=== PATIENT | female | born 1980 | race Caucasian/White ===

== ENCOUNTER 2022-04-25 14:45 | Outpatient (CLI) | payer BC, SELFPAY | END 2022-04-25 14:46 | disposition home or self-care (01) | LOC: LKVREF 14:49 | PROVIDERS: PCP Family Medicine; Visit Provider Family Medicine | DX: E03.9 Hypothyroidism, unspecified (principal) | CPT/HCPCS: 84443 ==

== ENCOUNTER 2022-05-12 09:56 | Outpatient (CLI) | payer BC, SELFPAY ==
--- NOTE | 2022-05-12 10:15 | CRLHL7_ITS ---
For Patients: As a result of the Century Cures Act, medical imaging exams and procedure reports are released immediately into your electronic medical record. You may view this report before your referring provider. If you have questions, please contact your health care provider. BILATERAL SCREENING MAMMOGRAM WITH COMPUTER-AIDED DETECTION TECHNIQUE: CC and MLO views were obtained. These mammographic images have been obtained using full-field digital technique. These mammographic images were interpreted with the benefit of computer-aided detection. COMPARISON FILM: None. This is a baseline study. FINDINGS: The breasts are heterogeneously dense, which may obscure small masses. IMPRESSION: There is no radiographic evidence for malignancy. ASSESSMENT: BI-RADS Category 1: Negative RECOMMENDATION: Routine screening mammogram in 1 year. A lay language report of this examination will be provided to the patient. HEBERT JOHNSON M.D. Diagnostic Radiologist [email or web address] Transcribed: 05/13/2022, 2:[address]/Dictated by: Hebert Johnson MD @ 05/13/2022 8:19:00 AM (Electronically Signed)
== END 2022-05-12 09:57 | disposition home or self-care (01) ==
LOC: MAMMO 09:57
PROVIDERS: PCP Family Medicine; Visit Provider Family Medicine
DX: Z12.31 Encounter for screening mammogram for malignant neoplasm of breast; R92.2 Inconclusive mammogram
CPT/HCPCS: 77063; 77067

== ENCOUNTER 2023-07-10 18:09 | Outpatient (CLI) | payer BC, SELFPAY | END 2023-07-10 18:10 | disposition home or self-care (01) | PROVIDERS: PCP Family Medicine; Visit Provider Family Medicine | DX: E03.9 Hypothyroidism, unspecified (principal); Z13.228 Encounter for screening for other metabolic disorders; E78.00 Pure hypercholesterolemia, unspecified | CPT/HCPCS: 80053; 80061; 84443 ==

== ENCOUNTER 2023-10-31 12:32 | Outpatient (CLI) | payer BC, SELFPAY ==
--- OUTSIDE RECORDS SUMMARY | 2023-10-31 12:35 | XMS_ITS | Encounter Summary ---
Author Organization [facility] Address [address] [place] [address] Care Team Providers Care Wood Polisher Name Role Phone Ruthie Yip P.A.-C. Primary Care Provider +- [phone] Reason for Referral * Outpatient (Routine) - Authorized Specialty Diagnoses / Procedures Referred By Contyuliana t Referred To Contact Diagnoses Screening Mammogram Breast Cancer Procedures BI Breast Screening Bilateral with Tomosynthesis Ruthie Yip P.A.-Ivonne [address] [facility] [place] [address] [facility] Referral ID Status Reason Start Date Expiration Date V isits Requested Visits Authorized [id number] Authorized 10/17/2023 10/16/2024 1 1 Encounter Details Date Type Department Care Team (Late st Contact Info) Description 10/17/2023 Orders Only [facility] PCP [facility] MNT Ruthie Yip P.ANia-Ivonne [address] [address] Hypothyroidism; Screening Mammogram Breast Cancer Social History Tobacco Use Types Packs/Day Years Used Date Smoking Tobacco: Former Smokeless Tobacco: Current [facility] Utilities Answer Date Recorded In the past 12 months has e electric, gas, oil, or water company threatened to shut off services in your home? No 07/01/2023 Exercise Vital Sign Answer Date Recorde d On average, how many days pe r week do you engage in moderate to strenuous exercise (like a brisk walk)? 6 days 07/01/2023 On average, how many minutes do you engage in exercise at this level? 60 min 07/01/2023 Hunger Vital Sign Answer Date Recorded Within the past 12 months, y ou worried that your food would run out before you got the money to buy more. Never true 07/01/19 Within the past 12 months, t he food you bought just didn't last and you didn't have money to get more. Never true 07/01/2023 PRAPARE - Transportation Answer Date Re corded In the past 12 months, has l ack of transportation kept you from medical appointments or from getting medications? No 06/09 In the past 12 months, has l ack of transportation kept you from meetings, work, or from getting things needed for daily living? No 07/01/2023 Nutrition Answer Date Recorded Nutrition: EVOO Fat Source Unknown 06/11 Nutrition: Servings of Fruits/Vegetables per Day Not on file 06/11/2020 Dental Answer Date Recorded Dental: Regular Dentist Yes 07/01/19 Housing Stability Answer Date Recorded What is your living situation today? I have a [facility] place to live 07/01/2023 Sex and Gender Information Value Date Recorded Sex Assigned at Female 07/11/2023 6:10 PM CDT Gender Identity Female 07/11/2023 6:10 PM CDT Sexual Orientation Straight 07/01/2023 10 :34 PM CDT documented as of this encounter Plan of Treatment Scheduled Orders Name Type Priority Associated Diagnoses Order Schedule S-TSH (Thyroid-Stimulating Hormone - Sensitive) Lab Routine Hypothyroidism Expected: 10/31/2023, Expires: 04/14/2024 BI Breast Screening Bilateral with Tomosynthesis Imaging RAD - Routine (most inpatients and all outpatients) Screening Mammogram Breast Cancer Expected: 11/16/2023, Expires: 04/14/2024 documented as of this encounter Visit Diagnoses Diagnosis Hypothyroidism Screening Mammogram Breast Cancer documented in this encounter Care Teams Wood Polisher Relationship Specialty Start Date End Date Ruthie Yip P.A.-C. [address], [place] [id number] PCP - General 06/25/20 documented as of this encounter
--- OUTSIDE RECORDS SUMMARY | 2023-10-31 12:35 | XMS_ITS | Clinical Summary ---
Author Organization [facility] Address [place], [place] [address] Care Team Providers Care Uniform Designer Name Role Phone Zac Marvin MD Primary Care Provider [phone] Allergies No known active allergies Medications Medication Sig Dispensed Refills Start Date End Date Status SUMAtriptan (IMITREX) 50 mg tablet Take 50 mg by mouth every 2 hours if needed for Migraine. Max dose: 200mg per 24 hrs. Active HYDROcodone-acetamin ophen, 5-325 mg, (NORCO) per tabletIndications:Ri ght sided abdominal pain,History of diverticulitis Take 1-2 tablets by mouth every 4 hours if needed for Pain. Max acetaminophen dose: 4000 mg in 24 hrs. 15 tablet 0 03/12/2015 Active Active Problems Problem Noted Date Diagnosed Date Sterilization 11/11/2014 Menorrhagia 11/11/2014 Pelvic pain in female 11/09/2014 Immunizations Name Administration Dates Next Due Tdap 02/21/2012 Social History Tobacco Use Types Packs/Day Years Used Date Smoking Tobacco: Every Day Smokeless Tobacco: Never Alcohol Use Standard Drinks/Week Comments Yes 0 (1 standard drink = 0.6 oz pur e alcohol) ocassional 3-4 per year Sex and Gender Information Value Date Recorded Sex Assigned at Not on file Gender Identity Not on file Sexual Orientation Not on file Obstetrics History Last Filed Vital Signs Vital Sign Reading Time Taken Comments Blood Pressure 125/77 03/12/2015 11:04 AM MINE LABORER Pulse 65 03/12/2015 11:04 AM MINE LABORER Temperature 37 ??C (98.6 ??F) 03/12/2015 11: 06 AM MINE LABORER Respiratory Rate 20 03/12/2015 11:0 4 AM MINE LABORER Oxygen Saturation 100% 03/12/2015 11: 04 AM MINE LABORER Inhaled Oxygen Concentration - - Weight 58.9 kg (129 lb 12.8 oz) 11/11/2014 6:08 AM CDT Height 167 cm (5' 5.75) 11/11/2014 6:08 AM CDT Body Mass Index 21.11 11/11/2014 6:08 AM CDT Plan of Treatment Health Maintenance Due Date Last Done Comments Depression screening for age 12+ 1991 HIV for age 15-65 08/27/1994 BMI (ht and wt on same day) for age 18+ 08/27/1997 Hepatitis C screening for ag e 18-79 08/27/1997 Tetanus booster 02/20/2022 02/21/2012 Pap test for age 21-65 11/28/2022 0, 11/29/2019 COVID-19 vaccine series ( season) 2022 Influenza for age 9-49 12/10/2023 Tdap Completed 02/21/2012 Pneumococcal series for age 6-64 Aged Out No longer eligible b ased on patient's age to complete this topic Medical Devices Implanted Type Area Mold Shaker Device Identifier Shelf Expiration Date Model / Serial / Lot Kit Fallopian Ring Apptr [id number] [employer] - [id number] Implanted:Qty: 1 on 11/11/2014 by David Foreman MD at [facility] [employer] [facility] 04/16/2019 [id number] / / [id number] Procedures Procedure Name Priority Date/Time Associated Diagnosis Comments FORMS ANALYST THIN PREP PAP SCREEN IMAGED Routine 11/29/2019 2:55 PM CDT from Last 3 Months or Most Recently Relevant to Health Maintenance Results * FORMS ANALYST THIN PREP PAP SCREEN IMAGED (11/29/2019 2:55 PM CDT) Case Report Gynecologic Cytology Report ? Case: [id number] ? Authorizing Provider: ??Zac Marvin MD ?Collected: ? 11/29/2019 1455 ? Ordering Location: ? [facility] ?Received: ?12/02/2019 1620 ? First Screen: ?Nicol Mann ? Specimen: ?FORMS ANALYST ThinPrep Vial Screening, Cervical/Vaginal ? 12/10/2019 12:54 PM CDT [facility] INTERPRETATION/ RESULT NEGATIVE FOR INTRAEPITHELIAL LESION OR MALIGNANCY (NIL) (none) 12/10/2019 12:54 PM CDT [facility] IMEN ADEQUACY Satisfactory for evaluation Endocervical component present 12/10/2019 12:54 PM CDT [facility] HPV REQUEST HPV and PAP 12/10/2019 12:54 PM CDT [facility] Date of LMP 12/10/2019 12:54 PM CDT [facility] Comment:UNK Last Pap Result First Pap/Unknown 12:54 PM CDT [facility] Additional Information 12/10/2019 12:54 PM CDT [facility] Comment: Interpreted at [facility] - [address], [place] [address] Automated Review Successful 12/10/2019 12:54 PM CDT [facility] Comment:Specimen processed s uccessfully by automated pulper device, 7writePrep Imaging System, [employer] ANCILLARY TESTING FORMS ANALYST HPV Ordered, Please see separate report 12/10/2019 12:54 PM CDT [facility]- ENTRAL LAB[facility]AT[facility] Note The pap test is a screening technique, not a diagnostic procedure. It is used primarily to screen for squamous cancers and precursor lesions. Published studies have shown that it is subject to both false negative and false positive results. The pap test should not be used as the sole means to diagnose or exclude pre-malignant and malignant lesions. 12/10/2019 12:54 PM CDT [facility] Other (Cervical/Vagina l) 11/29/2019 2:55 PM CDT 12/02/2019 4:20 PM CDT Zac Marvin MD PATHOLOGY/CYTOLOGY [facility] Material [facility] [address] [place] [address], from Last 3 Months or Most Recently Relevant to Health Maintenance Advance Directives * Full Code (Latest Code Status on File) Date Activated Date Inactivated Comments 11/11/2014 7:20 AM 11/11/2014 1:52 PM * Full Code Date Activated Date Inactivated Comments 11/11/2014 6:00 AM 11/11/2014 7:20 AM * Full Code Date Activated Date Inactivated Comments 12/10/2010 7:13 AM 12/10/2010 1:01 PM Care Teams Uniform Designer Relationship Specialty Start Date End Date Zac Marvin MD PCP - General Family Practice 11/05/10
--- OUTSIDE RECORDS SUMMARY | 2023-10-31 12:35 | XMS_ITS | Referral Summary ---
Author Organization [facility] Address [address] [place] [address] Care Team Providers Care Wet Suit Gluer Name Role Phone Ruthie Yip P.A.-C. Primary Care Provider [phone] Source Comments Patient records contain information from all sites at [facility]. For routine questions regarding patient records, call [phone] during business hours, M-F 8:00 AM - 5:00 PM Central Time. Record requests for emergency care only can be directed to [phone] at any time.[facility] Encounters Date Type Department Care Team Description 10/17/2023 Orders Only [facility] PCP [facility] MNT Ruthie Yip P.A.-C. Hypothyroidism; Screening Mammogram Breast Cancer from Last 3 Months Allergies No known active allergies Medications Medication Sig Dispensed Refills Start Date End Date Status SUMAtriptan (IMITREX) 50 mg tablet TAKE 1 TABLET BY MOUTH AT ONSET OF HEADACHE. REPEAT IN 2 HOURS NEEDED.APPOINTMENT DUE PLEASE 9 tablet 09/13/2019 Active sertraline (ZOLOFT) 50 mg tablet Take 50 mg by mouth daily. Active meloxicam (MOBIC) 15 mg tablet Take 15 mg by mouth daily. Active levothyroxine (SYNTHROID, LEVOTHROID) 50 mcg tablet Take 50 mcg by mouth every morning before breakfast. Active Immunizations Name Administration Dates Next Due Influenza (IM) Preservative Free 02/11/2008 Influenza Laiv (Nasal) (Discontinued) 01/29/2010 Influenza Split 03/22/2006 Influenza, Seasonal, Injectable 03/22/2007 Influenza, Unspecified 02/21/2012 Td Preservative Free (TENIVAC, DECAVAC) 08/13/19 04 Tdap 02/21/2012 Social History Tobacco Use Types Packs/Day Years Used Date Smoking Tobacco: Former Smokeless Tobacco: Current [facility] Utilities Answer Date Recorded In the past 12 months has th e electric, gas, oil, or water company [...] your living situation today? I have a [facility] place to live 07/01/2023 Sex and Gender Information Value Date Recorded Sex Assigned at Female 07/11/2023 6:10 PM CDT Gender Identity Female 07/11/2023 6:10 PM CDT Sexual Orientation Straight 07/01/2023 10 :34 PM CDT Last Filed Vital Signs Vital Sign Reading Time Taken Comments Blood Pressure 107/80 10/08/2020 2:38 PM CDT Pulse 84 10/08/2020 2:38 PM CDT Temperature - - Respiratory Rate 18 03/09/2016 8:41 AM CLOTH WINDING SUPERVISOR Oxygen Saturation - - Inhaled Oxygen Concentration - - Weight 70 kg (154 lb 5.2 oz) 10/08/2020 2:38 PM CDT Height 167 cm (5' 5.75) 03/09/2016 8:41 AM CLOTH WINDING SUPERVISOR Body Mass Index 25.1 03/09/2016 8:41 AM CLOTH WINDING SUPERVISOR Plan of Treatment Not on file Procedures Procedure Name Priority Date/Time Associated Diagnosis Comments EXT THINPREP W/HPV CO-TEST SCREEN Routine 11/29/2019 CHOLESTEROL, TOTAL, S Routine 2014 4:28 PM CDT from Last 3 Months or Most Recently Relevant to Health Maintenance Results * EXT ThinPrep w/HPV Co-Test Screen (11/29/2019) EXT ThinPrep w/HPV Co-Test Screen Normal - See Scanned Report for Details Normal - See Scanned Report for Details, HIMS - Report Received and Scanned Thin Prep Vial (Cervix/Endocervi x) 11/29/2019 Historical Provider LAB PAP PATHDX ORDER LENA * (ABNORMAL) Cholesterol, Total (2014 4:28 PM CDT) Cholesterol, Total 205(H) <=199 MGDL POWERCHART Comment: 2014 National Lipid Association recommendations for Total Cholesterol in adults ages 18 and up: Desirable <200 mg/dL Borderline high 200-239 mg/dL High 240 mg/dL 2014 National Lipid Association recommendations for Total Cholesterol in children ages 2 to 17. Acceptable <170 mg/dL Borderline High 170-199 mg/dL High 200 mg/dL Blood 2014 4:28 PM CDT Zac Marvin M.D. LAB BLOOD ADD-ON POWERCHART from Last 3 Months or Most Recently Relevant to Health Maintenance Care Teams Wet Suit Gluer Relationship Specialty Start Date End Date Ruthie Yip P.A.-C. [address] [address] PCP - General 06/25/20
--- OUTSIDE RECORDS SUMMARY | 2023-10-31 12:35 | XMS_ITS ---
Author Organization [facility] Address [address] [place] [address] Care Team Providers Care Call Worker Name Role Phone Unavailable Unavailable Unavailable Surgery Details Not on file Complications Check Surgery Details section. Procedure Estimated Blood Loss Check Surgery Details section. Procedure Findings Check Surgery Details section. Procedure Specimens Taken Check Surgery Details section.
--- OUTSIDE RECORDS SUMMARY | 2023-10-31 12:35 | XMS_ITS | Clinical Summary ---
Author Organization [facility] Address [address] [place] [address] Care Team Providers Care Brine Process Operator Name Role Phone Ruthie Yip P.A.-C. Primary Care Provider [phone] Source Comments Patient records contain information from all sites at [facility]. For routine questions regarding patient records, call [phone] during business hours, M-F 8:00 AM - 5:00 PM Central Time. Record requests for emergency care only can be directed to [phone] at any time.[facility] Allergies No known active allergies Medications Medication [...] by mouth every morning before breakfast. Active Encounters Date Type Department Care Team Description 10/17/2023 Orders Only [facility] PCP [facility] MNT Ruthie Yip P.A.-C. Hypothyroidism; Screening Mammogram Breast Cancer from Last 3 Months Immunizations Name Administration Dates Next Due Influenza (IM) Preservative Free 02/11/2008 Influenza Laiv (Nasal) (Discontinued) 01/29/2010 Influenza Split 03/22/2006 Influenza, Seasonal, Injectable 03/22/2007 Influenza, Unspecified 02/21/2012 Td Preservative Free (TENIVAC, DECAVAC) 08/13/19 04 Tdap 02/21/2012 Social History Tobacco Use Types Packs/Day Years Used Date Smoking Tobacco: Former Smokeless Tobacco: Current [place] Utilities Answer Date Recorded In the past [...] your living situation today? I have a [facility] place to live 07/01/2023 Sex and [...] - Respiratory Rate 18 03/09/2016 8:41 AM DESIGN MAKER Oxygen Saturation - - Inhaled Oxygen Concentration - - Weight 70 kg (154 lb 5.2 oz) 10/08/2020 2:38 PM CDT Height 167 cm (5' 5.75) 03/09/2016 8:41 AM DESIGN MAKER Body Mass Index 25.1 03/09/2016 8:41 AM DESIGN MAKER Plan of Treatment Health Maintenance Due Date Last Done Comments HIV Screening 1979 Hepatitis C Screening 1980 Mammogram 1979 Thyroid Stimulating Hormone (TSH) test for thyroid function 1979 Hepatitis B Vaccines (1 of 3 - 19+ 3-dose series) 08/27/1998 Lipid (Cholesterol) Screening 08/29/2019 2014 COVID-19 Vaccine ( - 2022-24 season) 2022 Depression Screening (Annual PHQ-2) 04/10/2023 Influenza Vaccine (#1) 2024 2, 01/29/2010, 02/11/2008, Additional history exists Cervical Cancer Screening 11/28/20242019, 11/29/2019, 02/21/2012 DTaP,Tdap,and Td Vaccines (3 - Td or Tdap) 07/09/2033 07/10/2023, 02/21/2012, 08/13/2003 HPV Vaccines Aged Out No longer eligi ble based on patient's age to complete this topic Pneumococcal vaccine (0-64 years) Aged Out No longer eligible based on patient's age to complete this topic Procedures Procedure Name Priority Date/Time Associated Diagnosis [...] Cholesterol, Total 205(H) <=199 MGDL POWERCHART Comment: 2013 National Lipid Association recommendations for Total Cholesterol in adults ages 18 and up: Desirable <200 mg/dL Borderline high 200-239 mg/dL High 240 mg/dL 2013 National Lipid Association recommendations for Total Cholesterol in children ages 2 to 17. Acceptable <170 mg/dL Borderline High 170-199 mg/dL High 200 mg/dL Blood 2014 4:28 PM CDT Zac Marvin M.D. LAB BLOOD ADD-ON POWERCHART from Last 3 Months or Most Recently Relevant to Health Maintenance Care Teams Brine Process Operator Relationship Specialty Start Date End Date Ruthie Yip P.A.-C. [address] [place] [phone] PCP - General 06/25/20
--- NOTE | 2023-10-31 13:00 | CRLHL7_ITS ---
For Patients: As a result of the Century Cures Act, medical imaging exams and procedure reports are released immediately into your electronic medical record. You may view this report before your referring provider. If you have questions, please contact your health care provider. BILATERAL SCREENING MAMMOGRAM WITH COMPUTER-AIDED DETECTION AND TOMOSYNTHESIS TECHNIQUE: CC and MLO views were obtained. These mammographic images have been obtained using full-field digital technique. These mammographic images were interpreted with the benefit of computer-aided detection. Breast tomosynthesis was used in this interpretation. COMPARISON FILM: 05/12/2022 FINDINGS: The breasts are heterogeneously dense, which may obscure small masses. IMPRESSION: There is no radiographic evidence for malignancy. ASSESSMENT: BI-RADS Category 1: Negative RECOMMENDATION: Routine screening mammogram in 1 year. A lay language report of this examination will be provided to the patient. HEBERT JOHNSON M.D. Diagnostic Radiologist [email or web address] Transcribed: 2:[address]/Dictated by: Hebert Johnson MD @ 11/01/2023 12:46:00 PM (Electronically Signed)
== END 2023-10-31 12:33 | disposition home or self-care (01) ==
LOC: MAMMO 12:33
PROVIDERS: PCP Family Medicine; Visit Provider Family Medicine
DX: Z12.31 Encounter for screening mammogram for malignant neoplasm of breast (principal); R92.2 Inconclusive mammogram
CPT/HCPCS: 77063; 77067

== ENCOUNTER 2024-12-30 18:26 | Outpatient (CLI) | payer BC, SELFPAY | END 2024-12-30 18:27 | disposition home or self-care (01) | PROVIDERS: PCP Family Medicine; Visit Provider Family Medicine | DX: N95.1 Menopausal and female climacteric states (principal); R53.83 Other fatigue | CPT/HCPCS: 83001; 84144; 84443 ==

== ENCOUNTER 2025-01-27 15:39 | Outpatient (CLI) | payer BC, SELFPAY | END 2025-01-27 15:40 | disposition home or self-care (01) | PROVIDERS: PCP Family Medicine; Visit Provider Family Medicine | DX: E03.9 Hypothyroidism, unspecified (principal); R79.89 Other specified abnormal findings of blood chemistry; K57.92 Diverticulitis of intestine, part unspecified, without perforation or abscess without bleeding | CPT/HCPCS: 80076; 84443; 86140 ==